=== PATIENT | female | born 1960 | race Caucasian/White ===

== ENCOUNTER 2017-09-26 08:25 | Day surgery (SDC) | payer OTHER ==
[~2017-09-26 08:25] MED LIST: Atenolol50 MG PO; CYCL10 PO; FLUC150A PO; Flonase 0.05% N16 GM; HYDACE5 PO; HYDROCODON-ACE1 EAC3 PO; METR70GEL VAG; NAPR500 PO; ONDA4 PO; PHENA200 PO; SERT50 PO; SULTRIDS PO; [UNRECOGNIZED DRUG - OTHER]
[2017-09-26 10:40] LABS: Performing Lab VERACYTE; Test Name FNA
[2017-09-29 08:48] LABS: Result SEE PATHOTH RESULTS
[2018-04-13] MEDS ORDERED: Norco 5-325 Ta1 EACH PO (16:49)
== END 2017-09-26 22:44 | disposition home or self-care (01) ==
LOC: US 08:25
PROVIDERS: Hospitalist
PROC: 0GBH3ZX Excision of Right Thyroid Gland Lobe, Percutaneous Approach, Diagnostic (ICD-10-PCS; principal; 2017-09-26)
PROC: 0GBG3ZX Excision of Left Thyroid Gland Lobe, Percutaneous Approach, Diagnostic (ICD-10-PCS; principal; 2017-09-26)
DX: E04.2 Nontoxic multinodular goiter (principal)
CPT/HCPCS: 10022; 76942

== ENCOUNTER 2017-12-02 16:14 | Emergency (ER) | payer OTHER ==
[~2017-12-02] VITALS: Ht 149.9 cm; Wt 64.9 kg
[2017-12-02] MEDS ORDERED: Cheratussin AC118 ML PO (16:45)
[2018-04-13] MEDS ORDERED: Norco 5-325 Ta1 EACH PO (16:49)
== END 2017-12-02 17:00 | disposition home or self-care (01) ==
LOC: ER 16:14
DX: J40 Bronchitis, not specified as acute or chronic (principal); Z79.899 Other long term (current) drug therapy
CPT/HCPCS: 99282

== ENCOUNTER 2019-02-26 12:54 | Day surgery (SDC) | payer OTHER ==
[~2019-02-26] VITALS: Ht 149.9 cm; Wt 66.7 kg
[~2019-02-26 12:54] MED LIST changes: +Cheratussin AC118 ML PO; +Norco 5-325 Ta1 EACH PO
== END 2019-02-26 15:32 | disposition home or self-care (01) ==
LOC: ORSCSDS 12:54
PROVIDERS: Surgery
PROC: 0DBM8ZX Excision of Descending Colon, Via Natural or Artificial Opening Endoscopic, Diagnostic (ICD-10-PCS; principal; 2019-02-26 14:15)
DX: Z12.11 Encounter for screening for malignant neoplasm of colon (principal); Z86.010 Personal history of colon polyps; D12.4 Benign neoplasm of descending colon; F32.9 Major depressive disorder, single episode, unspecified; I10 Essential (primary) hypertension; E78.00 Pure hypercholesterolemia, unspecified; Z79.899 Other long term (current) drug therapy; K57.30 Diverticulosis of large intestine without perforation or abscess without bleeding
CPT/HCPCS: 88305; J2704; J7120

== ENCOUNTER 2019-11-06 13:10 | Emergency (ER) | payer OTHER ==
[~2019-11-06] VITALS: Ht 149.9 cm; Wt 68.5 kg
[2019-11-06] MEDS ORDERED: OSELTAMIVIR PHO75 MG PO (13:45)
[2019-11-06] MEDS ORDERED: Mucinex600 MG PO (14:23)
== END 2019-11-06 14:27 | disposition home or self-care (01) ==
LOC: ER 13:10
DX: J11.1 Influenza due to unidentified influenza virus with other respiratory manifestations (principal)
CPT/HCPCS: 71046; 99283-25

== ENCOUNTER 2021-01-06 10:59 | Day surgery (SDC) | payer OTHER ==
[~2021-01-06] VITALS: Ht 152.4 cm; Wt 73.5 kg
[~2021-01-06 10:59] MED LIST changes: +Mucinex600 MG PO; +OSELTAMIVIR PHO75 MG PO
[2021-01-06] MEDS ORDERED: OMEP20ER (11:41)
--- NOTE | 2021-01-06 13:32 | NUR ---
01/06/21 1332 Paradise Guy ALL CHARTING DONE PRIOR TO 1314 THAT IS UNDER JAR WAS ACTUALLY DONE BY [facility].
--- NOTE | 2021-01-06 15:31 | NUR ---
01/06/21 1531 Vicky Ceballos PT IN THE RECLINER AT THIS TIME. BEVERAGES AND SNACKS AT CHAIRSIDE. PT DENIES NAUSEA. VSS. PT REPORTS PAIN 03/27; RN ADMINISTRED IV PAIN MEDICATION PER DR'S ORDERS.
== END 2021-01-06 16:05 | disposition home or self-care (01) ==
LOC: ORSCSDS 10:59
PROVIDERS: Otolaryngology
PROC: 0GTH0ZZ Resection of Right Thyroid Gland Lobe, Open Approach (ICD-10-PCS; principal; 2021-01-06 12:15)
DX: E04.2 Nontoxic multinodular goiter (principal); K21.9 Gastro-esophageal reflux disease without esophagitis; N18.9 Chronic kidney disease, unspecified
CPT/HCPCS: 88307; J1100; J2250; J2405; J2704; J2710; J3010; J7120

== ENCOUNTER 2021-07-21 22:50 | Emergency (ER) | payer OTHER ==
[~2021-07-21 22:50] MED LIST changes: +OMEP20ER
== END 2021-07-22 02:00 | disposition home or self-care (01) ==
LOC: ER 22:50
DX: J06.9 Acute upper respiratory infection, unspecified (principal); E03.9 Hypothyroidism, unspecified; Z20.822 Contact with and (suspected) exposure to COVID-19
CPT/HCPCS: 71045; 99283-25

== ENCOUNTER → 2022-04-30 | Outpatient (CLI) | payer OTHER | END | disposition home or self-care (01) | LOC: LAB SHORT 16:26 → LAB 16:26 | DX: N39.0 Urinary tract infection, site not specified (principal) | CPT/HCPCS: 87086 ==

== ENCOUNTER → 2023-04-21 | Outpatient (CLI) | payer OTHER | END | disposition home or self-care (01) | LOC: LAB 06:20 → LAB SHORT 06:20 | DX: E89.0 Postprocedural hypothyroidism (principal) | CPT/HCPCS: 36415; 84443 ==

== ENCOUNTER → 2024-03-11 | Outpatient (CLI) | payer OTHER | LOC: LAB SHORT 17:49 → LAB 17:49 | DX: N39.0 Urinary tract infection, site not specified (principal) | CPT/HCPCS: 87077; 87086; 87186 ==

== ENCOUNTER 2024-03-24 17:30 | Emergency (ER) | payer OTHER ==
[~2024-03-24] VITALS: Ht 149.9 cm; Wt 77.1 kg
[2024-03-24 18:44] LABS: Influenza A, PCR NEGATIVE (NEGATIVE); Influenza B, PCR NEGATIVE (NEGATIVE); Resp Syncytial Virus, PCR NEGATIVE (NEGATIVE)
[2024-03-24 18:50] LABS: SARS-Cov-2 (COVID-19) PCR, MMC POSITIVE (NEGATIVE)
[2024-03-24 19:14] LABS: BASOPHILS ABSOLUTE AUTO 0.03 K/mm3 (0.00-0.23); BASOPHILS PERCENT AUTO 1 % (0-2); EOSINOPHILS ABSOLUTE AUTO 0.04 K/mm3 (0.00-0.68); EOSINOPHILS PERCENT AUTO 1 % (0-6); Hematocrit 49.6 % (33.0-51.0); Hemoglobin 16.5 g/dL (11.5-16.0); IMMATURE GRAN ABSOLUTE AUTO 0.01 K/mm3 (0.00-0.10); IMMATURE GRAN PERCENT AUTO 0 % (0-1); LYMPHOCYTES ABSOLUTE AUTO 1.04 K/mm3 (0.84-5.20); LYMPHOCYTES PERCENT AUTO 20 % (21-46); MONOCYTES ABSOLUTE AUTO 0.73 K/mm3 (0.16-1.47); MONOCYTES PERCENT AUTO 14 % (4-13); Mean Corpuscular HGB 30.1 pg (26.0-34.0); Mean Corpuscular HGB Conc 33.3 g/dL (31.5-36.5); Mean Corpuscular Volume 91 fL (80-100); Mean Platelet Volume 10.7 fL (9.1-12.4); NEUTROPHILS ABSOLUTE AUTO 3.31 K/mm3 (1.96-9.15); NEUTROPHILS PERCENT AUTO 64 % (41-73); Platelet Count 136 K/mm3 (150-400); RDW Standard Deviation 43.8 fL (35.1-46.3); Red Blood Cell Count 5.48 M/mm3 (3.80-5.20); White Blood Cell Count 5.16 K/mm3 (4.00-11.30)
[2024-03-24 19:45] LABS: Albumin, Blood 3.6 g/dL (3.4-5.0); Albumin/Globulin Ratio 0.9 (0.8-1.8); Bilirubin, Total 1.3 mg/dL (0.1-1.0); Bun/Creatinine Ratio 20.1 (12.0-20.0); Calcium, Blood 8.4 mg/dL (8.5-10.1); Creatinine, Blood 0.95 mg/dL (0.40-1.00); Globulin, Blood 3.9 g/dL (2.2-4.0); Potassium, Blood 3.9 mmol/L (3.5-5.5); Total Protein, Blood 7.5 g/dL (6.4-8.2)
[2024-03-24 20:00] VITALS: BP 164/86
== END 2024-03-24 20:43 | disposition home or self-care (01) ==
LOC: ER 17:30
PROVIDERS: Student in an Organized Health Care Education/Training Program
DX: U07.1 COVID-19 (principal); Z79.899 Other long term (current) drug therapy
CPT/HCPCS: 0241U; 71046; 80053; 85025; 93005; 93010; 99284-25

== ENCOUNTER → 2024-07-17 | Outpatient (CLI) | payer OTHER | LOC: LAB SHORT 08:31 → LAB 08:31 | DX: N39.0 Urinary tract infection, site not specified (principal) | CPT/HCPCS: 87077; 87086; 87186 ==

== ENCOUNTER 2024-08-30 08:12 | Day surgery (SDC) | payer OTHER ==
[~2024-08-30] VITALS: Ht 149.9 cm; Wt 75.2 kg
[~2024-08-30 08:12] MED LIST changes: +Lactated Ringer's 1,000 ML IV ONE; +propofoL 50 ML IV ONE
[2024-08-30] MEDS ORDERED: EUTHYROX88 MCG (09:22)
[2024-08-30] MEDS ORDERED: Lactated Ringer's 1,000 ML IV ONE (09:53)
[2024-08-30 11:07] VITALS: BP 138/70
== END 2024-08-30 11:14 | disposition home or self-care (01) ==
LOC: ORSCSDS 08:12
PROVIDERS: Surgery
PROC: 0DJD8ZZ Inspection of Lower Intestinal Tract, Via Natural or Artificial Opening Endoscopic (ICD-10-PCS; principal; 2024-08-30 10:00)
DX: Z12.11 Encounter for screening for malignant neoplasm of colon (principal); Z86.0101 Personal history of adenomatous and serrated colon polyps; K57.30 Diverticulosis of large intestine without perforation or abscess without bleeding; N18.9 Chronic kidney disease, unspecified; F32.A Depression, unspecified; E03.9 Hypothyroidism, unspecified; Z79.899 Other long term (current) drug therapy
CPT/HCPCS: J2704; J7120

== ENCOUNTER 2024-10-16 06:28 | Day surgery (SDC) | payer BC, OTHER ==
[~2024-10-16] VITALS: Ht 152.4 cm; Wt 73.9 kg
[~2024-10-16 06:28] MED LIST changes: +Balanced Salt Epinephrine Irrigation Solution 500 mL IR SCH; +EUTHYROX88 MCG; -Lactated Ringer's 1,000 ML IV ONE; +Lidocaine HCl/Pf 1% 5 ML VIAL XX SCH; +Moxifloxacin HCL 0.5 MG/0.1 ML 0.4MLSYR RIGHTEYE SCH; +PHENYLEPHRINE\\TROPICAMIDE\\TETRACAINE OPHTHALMIC DILATING SOLN RIGHTEYE PRN; +Povidone-Iodine 450 DROP/30 ML Solution ONE; +Povidone-Iodine 450 DROP/30 ML Solution RIGHTEYE SCH; +Tetracaine HCl/Pf 0.5% Opth Soln 4 ml ONE; +Triamcinolone Inj Susp 40 MG / ML 1ML Vial INJ SCH; -propofoL 50 ML IV ONE
[2024-10-16] MEDS ORDERED: Diazepam 2 MG Tab ONE (06:39)
[2024-10-16] MEDS ORDERED: Diazepam 5 MG Tab ONE (06:40)
[2024-10-16] MEDS ORDERED: Triamcinolone Inj Susp 40 MG / ML 1ML Vial ONE (06:41)
[2024-10-16] MEDS ORDERED: Lidocaine HCl/Pf 1% 5 ML VIAL ONE (06:41)
--- NOTE | 2024-10-16 07:20 | NUR ---
10/16/24 0720 Vicky Ceballos ANXIETY REASSESSED 11/25.
[2024-10-16] MEDS ORDERED: Ondansetron HCl 2 MG / ML 2ML Vial ONE (07:53)
[2024-10-16 08:21] VITALS: BP 149/88
== END 2024-10-16 08:45 | disposition home or self-care (01) ==
LOC: ORSCSDS 06:28
PROVIDERS: Ophthalmology
PROC: 08RJ3JZ Replacement of Right Lens with Synthetic Substitute, Percutaneous Approach (ICD-10-PCS; principal; 2024-10-16 08:00)
DX: H25.813 Combined forms of age-related cataract, bilateral (principal); N18.9 Chronic kidney disease, unspecified; K21.9 Gastro-esophageal reflux disease without esophagitis; F32.A Depression, unspecified; E03.9 Hypothyroidism, unspecified; Z79.899 Other long term (current) drug therapy
CPT/HCPCS: A9270; J2003; J2405; J3301; V2632

== ENCOUNTER 2024-10-24 11:07 | Day surgery (SDC) | payer BC ==
[~2024-10-24] VITALS: Ht 149.9 cm; Wt 73.2 kg
[~2024-10-24 11:07] MED LIST changes: +Moxifloxacin HCL 0.5 MG/0.1 ML 0.4MLSYR LEFTEYE SCH; -Moxifloxacin HCL 0.5 MG/0.1 ML 0.4MLSYR RIGHTEYE SCH; +PHENYLEPHRINE\\TROPICAMIDE\\TETRACAINE OPHTHALMIC DILATING SOLN LEFTEYE PRN; -PHENYLEPHRINE\\TROPICAMIDE\\TETRACAINE OPHTHALMIC DILATING SOLN RIGHTEYE PRN; +Povidone-Iodine 450 DROP/30 ML Solution LEFTEYE SCH; -Povidone-Iodine 450 DROP/30 ML Solution RIGHTEYE SCH; +Triamcinolone Inj Susp 40 MG / ML 1ML Vial ONE
[2024-10-24] MEDS ORDERED: Diazepam 2 MG Tab ONE (11:46)
[2024-10-24] MEDS ORDERED: Diazepam 5 MG Tab ONE (11:46)
--- NOTE | 2024-10-24 11:56 | NUR ---
10/24/24 1156 MAGDA PALACIOS PT MEDICATED PER STANDING ORDER WITH 7MG VALIUM, PO. CALL LIGHT IN REACH.
[2024-10-24] MEDS ORDERED: Ondansetron HCl 2 MG / ML 2ML Vial ONE (12:20)
[2024-10-24 12:50] VITALS: BP 167/90
== END 2024-10-24 13:03 | disposition home or self-care (01) ==
LOC: ORSCSDS 11:07
PROVIDERS: Ophthalmology
PROC: 08RK3JZ Replacement of Left Lens with Synthetic Substitute, Percutaneous Approach (ICD-10-PCS; principal; 2024-10-24 13:00)
DX: H25.812 Combined forms of age-related cataract, left eye (principal); Z96.1 Presence of intraocular lens; K21.9 Gastro-esophageal reflux disease without esophagitis; F32.A Depression, unspecified; E03.9 Hypothyroidism, unspecified; N18.9 Chronic kidney disease, unspecified; Z79.899 Other long term (current) drug therapy
CPT/HCPCS: A9270; J2405; J3301; V2632